=== PATIENT | female | born 1950 | race Caucasian/White ===

== ENCOUNTER → 2019-03-28 | Outpatient (CLI) | payer MEDICARE, OTHER ==
[~2019-03-28] MED LIST: AMBIEN 10MG10 MG PO; MYRBETR50MG PO; PRILOSEC 20MG20 MG PO; SYNTHROID0.075 MG/T PO
== END ==
LOC: COL.RAD 06:37
DX: K21.9 Gastro-esophageal reflux disease without esophagitis (principal); K22.2 Esophageal obstruction; R47.02 Dysphasia; R19.4 Change in bowel habit; R19.7 Diarrhea, unspecified
CPT/HCPCS: A9541

== ENCOUNTER 2019-04-25 08:15 | Outpatient (RCR) | payer MEDICARE, OTHER | END 2019-07-02 | disposition home or self-care (01) | LOC: WSST | DX: R13.10 Dysphagia, unspecified (principal); R13.13 Dysphagia, pharyngeal phase; K22.2 Esophageal obstruction ==

== ENCOUNTER → 2019-04-25 | Outpatient (CLI) | payer MEDICARE, OTHER | LOC: COL.RAD 09:40 | DX: K22.2 Esophageal obstruction (principal) ==

== ENCOUNTER 2019-09-11 08:48 | Observation (INO) | payer MEDICARE, OTHER ==
[2019-09-11] VITALS (10 sets, daily range): BP systolic 126–148; BP diastolic 67–88; PULSE 68–95; TEMP 97.6–98.4
[~2019-09-11] VITALS: Ht 165.1 cm; Wt 71.6 kg
[2019-09-11] MEDS ORDERED: PROTONIX 40MG T40 MG PO (09:36)
[2019-09-11] MEDS ORDERED: SMZ/TMPDS PO (09:37)
[2019-09-11] MEDS ORDERED: LAMISIL250 M1 PO (09:38)
[2019-09-11] MEDS ORDERED: NIZORAL CREAM15 GM TP (09:39)
[2019-09-11] MEDS ORDERED: CORTIZONE-10 MAXIM11 TP (09:40)
[2019-09-11] MEDS ORDERED: VESICARE10 MG PO (09:41)
[2019-09-11] MEDS ORDERED: BENADRYL25 M2 PO (09:42)
[2019-09-11] MEDS ORDERED: LASIX 20MG TABL20 MG PO (09:42)
--- NOTE | 2019-09-11 11:15 | NUR ---
Attempted x5 for IV start. Was able to gain access with 20 serena in left hand but catheter out of skin. IV therapy not available today. Notified anesthesia about difficulty with IV start. DWAINE Cazares, states that he will be out between cases to try for IV. Pt tolerated IV starts/misses well.
--- NOTE | 2019-09-11 18:30 | NUR ---
PATIENT ADMITED INTO ROOM 326 POST OP ROBOTIC REMI. ABD LAP SITES X5. ABD IS ROUND, SOFT AND WITH POSITIVE BOWL SOUNDS. NO C/O N/V. VSS. SORORITY SUPERVISOR AT BEDSIDE TAKING OVER. AT BEDSIDE.
--- NOTE | 2019-09-11 19:30 | NUR ---
Pt. laying in bed at this time. Pt. is A&OX3, assessment complete. INT to lt. hand patent. IV to rt. hand patent, IV fluids infusing per orders. Pt. reports pain at a 6 on pain scale, will give pain meds per orders. Abd. laps X5 CDI. Pt. denies further needs, call light within reach.
[2019-09-12 02:48] VITALS: BP 138/79; PULSE 93; TEMP 97.5
[2019-09-12 07:51] VITALS: BP 126/75; PULSE 90; TEMP 97.8
--- NOTE | 2019-09-12 08:00 | NUR ---
PATIENT IS A&O. PATIENT REPORTS PAIN IS MANAGED. PATIENT DID HAVE SOME NAUSEA LAST NIGHT. GAVE PRN IV ZOFRAN BEFORE AM MEDS. ABD IS SOFT, ROUND AND WITH POSITIVE BOWL SOUNDS. LEFT AND RIGHT HAND IV'S TO INT. BREAKFAST TRAY AT BEDSIDE. AM MEDS GIVEN. HEAD TO TOE ASSESSMENT COMPLETE. NO OTHER NEEDS. CALL LIGHT IN REACH.
--- NOTE | 2019-09-12 09:32 | NUR ---
ROHIT met with the patient to discuss discharge plan. The patient lives in [place] with her partner of three years, Ruben Mars (ph#[phone]). She reports independence with ADLs and has a walker available, if needed. The patient's primary care provider is BRIGHT Echeverria and she receives her medications at [facility]. She reports no difficulties obtaining her meds. The patient's advanced directives are in her chart. Her DPOA-HC is her partner (Ruben) and the alternate is her sister (Priya Coffman). The patient plans to return home with her partner upon discharge. No additional needs at this time.
--- NOTE | 2019-09-12 10:43 | NUR ---
Initial visit; Patient and thanked Nail Expert for looking in on her and offering spiritual care. Patient experiencing discomfort. Nail Expert will follow ip another time.
[2019-09-12 11:22] VITALS: BP 130/73; PULSE 65; TEMP 97.8
[2019-09-12 15:57] VITALS: BP 121/58; PULSE 70; TEMP 97.5
--- NOTE | 2019-09-12 20:00 | NUR ---
Pt. sitting up in bed at this time. Pt. is A&OX3, assessment complete. INT to lt. and rt. hands patent. Pt. reports mild pain at a 2. Pt. denies further needs, call light within reach.
[2019-09-12 20:49] VITALS: BP 123/64; PULSE 74; TEMP 98.2
[2019-09-12 23:38] VITALS: BP 125/69; PULSE 84; TEMP 97.8
[2019-09-13 03:28] VITALS: BP 153/83; PULSE 76; TEMP 97.8
--- NOTE | 2019-09-13 06:10 | NUR ---
Pt. slept well through the night. Pt. remains A&OX3. No flowers in status.
[2019-09-13 08:55] VITALS: BP 139/60; PULSE 71; TEMP 98.3
--- NOTE | 2019-09-13 09:32 | NUR ---
Follow-up visit; Patient thanked Combination Welder Apprentice for looking in on her again today and states she is doing better. Combination Welder Apprentice offered God's blessings.
--- NOTE | 2019-09-13 10:00 | NUR ---
Patient has been doing well. She has been up sitting on the couch. No complaints of pain or nausea. Her is here visiting and waiting for her to discharge. Patient stated she understands her discharge diet. No other changes at this time. Call light within reach.
[2019-09-13 12:19] VITALS: BP 121/67; PULSE 81; TEMP 97.8
[2019-09-13] MEDS ORDERED: NORCO 325 MG-51 TAB PO (14:08)
[2019-09-13] MEDS ORDERED: ZOFRAN 4MG T4 MG/TAB PO (14:08)
--- NOTE | 2019-09-13 15:20 | NUR ---
Patient is discharging home. Discharge instructions disccussed with patient. No questions verbalized. INT discontinued from right and left hand. Copies of discharge instructions sent with patient. All belongings packed up by . Explained she has prescriptions to take to the pharmacy to get filled. Explained when follow up appointment is. Patient walked out via wheel chair by Luana FORRESTER.
== END 2019-09-13 15:20 | disposition home or self-care (01) ==
LOC: SDCO 08:48 → SURG 19:00 → SDCO 09-13 08:12 → SURG 09-13 08:13
PROVIDERS: ADMIT Surgery
DX: K21.9 Gastro-esophageal reflux disease without esophagitis (principal); K22.70 Barrett's esophagus without dysplasia; K44.9 Diaphragmatic hernia without obstruction or gangrene; E03.9 Hypothyroidism, unspecified; Z79.899 Other long term (current) drug therapy
CPT/HCPCS: OP; A9284; C1781; G0378; J0690; J2405; J2704; J3010; J7120